=== PATIENT | female | born 1950 | race Caucasian/White ===

== ENCOUNTER → 2018-07-28 | Outpatient (CLI) | payer MEDICARE, OTHER ==
[~2018-07-28] MED LIST: ASPI-1471 PO; CALC-41 PO; CALC600T63 PO; CHOL400T29 PO; GLUC1TAB13 PO; LEVO-3 PO; MULT-912 PO
--- NOTE | 2018-07-28 10:40 | RADIOLOGY IMAGING REPORT ---
FACILITY: [facility] PATIENT NAME: Amie Fuller : 1950 MR: [id number] V: [id number] EXAM DATE: ORDERING PHYSICIAN: RAJAN JAMES TECHNOLOGIST: Location: [facility] Patient: Amie Fuller : 1950 Visit/Account:[id number] Date of Sevice: 07/28/2018 DEXA Scan Clinical history: Osteopenia. Comparison: DEXA scan from 06/20/2016. LUMBAR SPINE: The bone mineral density (BMD) measured from L1-L4 correlates with a Z-score of -0.8 and a T-score of -2.4 which is osteopenia as defined by the World Health Organization. The corresponding risk of fra cture in the lumbar spine is 4-6 times increased compared with a young adult reference population. T his value has decrease by 3.8 % since the prior study. More than 5% change is considered significant . HIP: Bone mineral density (BMD) measured in the LEFT total hip region correlates with a Z-score -0.4 and a T-score of -1.7 which is osteopenia as defined by the World Health Organization. The corresponding risk of fracture in the hip is 3-4 times increased compared to a young adult reference population. Th is value has decreased by 0.5 % since the prior study. More than 5% change is considered significant . T score left femoral neck -1.8 Bone mineral density (BMD) measured in the Femoral Neck region measures 0.791 g/cm?. IMPRESSION: 1. Lumbar spine: Osteopenia. There has been 3.8% decrease in the bone mineral density since the pre vious exam. 2. Left Total Hip: Osteopenia. There has been 0.5% decrease in the bone mineral density since the p revious exam. 3. Femoral Neck: Bone Mineral Density is 0.791 g/cm? The next DEXA scan of this patient should include the following sites: L1-L4 and the left hip. FRAX? WHO Fracture Risk Assessment Tool link: <http://www.shef.ac.uk/FRAX/tool.jsp?locationValue=9> PLEASE NOTE: 1) The World Health Organization defines low BMD as follows: T-score Normal > -1 Osteopenia < -1 and > -2.5 Osteoporosis < -2.5 without fractures Established osteoporosis < -2.5 with fractures 2) In general, you may wish to consider: Diagnosis Treatment Follow-up DEXA Normal BMD Prevention 2-3 years Osteopenia Prevention/therapy 1-2 years Osteoporosis Therapy Yearly 3) Fracture risk estimated from the T-score is more accurate for vertebral fractures (often spontane ous) than for hip fractures. Report Dictated By: Jocelynn Marks MD at 07/28/2018 10:33 AM Report E-Signed By: Jocelynn Marks MD at 07/28/2018 10:35 AM WSN:[email or web address]
--- NOTE | 2018-07-29 15:00 | RADIOLOGY IMAGING REPORT ---
[place] [facility] [place] NAME: ANGELINA SPANGLER : [id number] MR: [id number] V: [id number] EXAM DATE: [id number] ORDERING PHYSICIAN: RAJAN JAMES TECHNOLOGIST: Sherron Falcon PROCEDURE:BILATERAL DIGITAL SCREENING MAMMOGRAM WITH CAD ASSISTED INTERPRETATION & 3D TOMOSYNTHESIS COMPARISON:Prior mammograms 07/16/17, 06/03/16, 04/16/15, 04/03/14, 04/01/13, 03/24/12. INDICATIONS:SCREENING FINDINGS: A small amount of fibroglandular tissue is seen throughout the breasts. The parenchymal pattern has remained stable allowing for difference in mammographic technique & patient positioning. There is no evidence of malignant appearing mass, malignant appearing calcifications or other secondary sign of malignancy in either breast. DIAGNOSTIC CATEGORY 1--NEGATIVE. RECOMMENDATIONS: ROUTINE MAMMOGRAM AND CLINICAL EVALUATION. IMPRESSION: BIRADS 1: Negative. No significant abnormality is seen. Dictated by: Jocelynn Marks M.D. on 07/28/2018 at 15:50 Transcribed by: YOAV on 07/28/2018 at 16:07 Approved by: Jocelynn Marks M.D. on 07/29/2018 at 14:59 [facility]
== END ==
LOC: MAMO 00:25
PROVIDERS: ATTEND Physician Assistant
DX: Z12.31 Encounter for screening mammogram for malignant neoplasm of breast (principal); M85.88 Other specified disorders of bone density and structure, other site
CPT/HCPCS: 77063; 77067; 77080